=== PATIENT | male | born 1930 | race Caucasian/White ===

== ENCOUNTER 2018-05-24 12:32 | Emergency (ER) | payer BC, MEDICARE, OTHER ==
[~2018-05-24] VITALS: Ht 172.7 cm; Wt 83.0 kg
[2018-05-24] MEDS ORDERED: CITA40TA5 PO (13:48)
[2018-05-24] MEDS ORDERED: LEVE500T53 PO (13:48)
[2018-05-24] MEDS ORDERED: SIMV20TA3 PO (13:48)
[2018-05-24] MEDS ORDERED: MULT-257 PO (13:48)
[2018-05-24] MEDS ORDERED: OMEG-14 PO (13:48)
[2018-05-24] MEDS ORDERED: CALC-534 PO (13:48)
[2018-05-24] MEDS ORDERED: LISI-167 PO (13:48)
[2018-05-24 14:07] LABS: BASOPHILS # (AUTO) 0.05 x10^3/uL (0-0.1); BASOPHILS % (AUTO) 1 % (0-1); EOSINOPHILS # (AUTO) 0.07 x10^3/uL (0-0.4); EOSINOPHILS % (AUTO) 1 % (1-7); LYMPHOCYTES # (AUTO) 1.78 x10^3/uL (1-3.4); LYMPHOCYTES % (AUTO) 23 % (22-44); MD NO; MEAN CORPUSCULAR HEMOGLOBIN 31.3 pg (27.5-34.5); MEAN CORPUSCULAR HGB CONC 33.2 g/dL (33.2-36.2); MEAN CORPUSCULAR VOLUME 94.3 fL (81-97); MEAN PLATELET VOLUME 9.1 fL (7.4-10.4); MONOCYTES # (AUTO) 0.57 x10^3/uL (0.2-0.8); MONOCYTES % (AUTO) 7 % (2-9); NEUTROPHILS # (AUTO) 5.41 x10^3/uL (1.8-6.8); NEUTROPHILS % (AUTO) 69 % (42-75); PLATELET COUNT 239 x10^3/uL (130-400); RED BLOOD COUNT 5.07 x10^6/uL (4.38-5.82); RED CELL DISTRIBUTION WIDTH 13.5 % (9.4-14.8)
[2018-05-24 14:13] LABS: INTERNATIONAL NORMALIZED RATIO 1.08 (0.93-1.1); PROTHROMBIN TIME 11.2 Seconds (9.6-11.5)
[2018-05-24 14:16] LABS: ALANINE AMINOTRANSFERASE 21 U/L (12-78); ALBUMIN 3.5 g/dL (3.4-5.0); ANION GAP 13 mmol/L (5-15); CALCIUM 8.4 mg/dL (8.5-10.1); CHLORIDE 103 mmol/L (98-107); CREATININE 0.89 mg/dL (0.7-1.3)
[2018-05-24 14:20] LABS: ALKALINE PHOSPHATASE 72 U/L (45-117); BILIRUBIN,TOTAL 1.3 mg/dL (0.2-1.0); TOTAL PROTEIN 7.4 g/dL (6.4-8.2); TROPONIN I < 0.015 ng/mL (0.000-0.045)
[2018-05-24 15:43] LABS: MICROSCOPIC INDICATED
[2018-05-24 15:54] VITALS: BP 139/90
[2018-05-24 15:54] LABS: CULTURE INDICATED? YES
== END 2018-05-24 17:12 | disposition home or self-care (01) ==
LOC: ED 17:06
DX: R41.0 Disorientation, unspecified (principal); R11.0 Nausea; E78.5 Hyperlipidemia, unspecified; I10 Essential (primary) hypertension; R51 Headache
CPT/HCPCS: 36415; 70450; 71045; 80053; 80177; 81001; 84484; 85025; 85610; 85730; 87086; 93005; 99285

== ENCOUNTER 2019-04-11 17:27 | Emergency (ER) | payer MEDICARE, OTHER ==
[~2019-04-11] VITALS: Ht 172.7 cm; Wt 86.1 kg
[2019-04-11 19:29] VITALS: BP 142/71
== END 2019-04-11 19:31 | disposition home or self-care (01) ==
LOC: ED 19:25
DX: M54.5 Low back pain (principal); I10 Essential (primary) hypertension; E78.5 Hyperlipidemia, unspecified
CPT/HCPCS: 36415; 74176; 80053; 81001; 85025; 87086; 93005; 99284

== ENCOUNTER 2019-09-04 14:45 | Inpatient (IN) | payer MEDICARE, OTHER ==
[~2019-09-04] VITALS: Ht 172.7 cm; Wt 85.2 kg
[~2019-09-04 14:45] MED LIST: CALC-534 PO; CITA40TA5 PO; LEVE500T53 PO; LISI-167 PO; MULT-257 PO; OMEG-14 PO; SIMV20TA3 PO
--- NOTE | 2019-09-04 14:59 | NUR ---
Pt ambulatory to room. Pt reports pain to RLL and decreased senastion to right foot x2 days. RLL is red, swollen and dry with two abrasion-like spots underneath the kneecap. Pt in gown. Call light within reach.
[2019-09-04] MEDS ORDERED: SODIUM CHLORIDE FLUSH 10ML SYR IVF ONE (15:30)
[2019-09-04] MEDS ORDERED: VANCOMYCIN PER PHARMACY MC ONE (15:30)
[2019-09-04] MEDS ORDERED: VANCOMYCIN 1,500 MG in SODIUM CHLORIDE 0.9% 250 ML IV ONE (15:30)
--- NOTE | 2019-09-04 15:31 | NUR ---
Blood and cultures drawn. US at bedside.
--- NOTE | 2019-09-04 15:37 | NUR ---
PIV PLACED IN PT. PT TOLERATED WELL.
[2019-09-04 15:46] LABS: MEAN CORPUSCULAR HEMOGLOBIN 31.9 pg (27.5-34.5); MEAN CORPUSCULAR HGB CONC 33.3 g/dL (33.2-36.2); MEAN CORPUSCULAR VOLUME 95.9 fL (81-97); MEAN PLATELET VOLUME 8.6 fL (7.4-10.4); PLATELET COUNT 220 x10^3/uL (130-400); RED BLOOD COUNT 4.46 x10^6/uL (4.38-5.82); RED CELL DISTRIBUTION WIDTH 13.3 % (9.4-14.8)
[2019-09-04 15:52] LABS: ALBUMIN 2.8 g/dL (3.4-5.0); ANION GAP 6 mmol/L (5-15); CALCIUM 8.8 mg/dL (8.5-10.1); CHLORIDE 100 mmol/L (98-107); CREATININE 0.88 mg/dL (0.7-1.3)
[2019-09-04 16:18] LABS: BASOPHILS # (AUTO) 0.02 x10^3/uL (0-0.1); BASOPHILS % (AUTO) 0 % (0-1); EOSINOPHILS % (AUTO) 0 % (1-7); LYMPHOCYTES # (AUTO) 1.39 x10^3/uL (1-3.4); LYMPHOCYTES % (AUTO) 8 % (22-44); MD SCAN; MONOCYTES # (AUTO) 1.11 x10^3/uL (0.2-0.8); MONOCYTES % (AUTO) 6 % (2-9); NEUTROPHILS # (AUTO) 16.02 x10^3/uL (1.8-6.8); NEUTROPHILS % (AUTO) 86 % (42-75)
--- NOTE | 2019-09-04 16:21 | NUR ---
HOSPITALIST TO BEDSIDE.
[2019-09-04] MEDS ORDERED: VANCOMYCIN PER PHARMACY MC PRN (16:30)
[2019-09-04] MEDS ORDERED: ONDANSETRON ODT 4 MG PO PRN (16:30)
[2019-09-04] MEDS: AMPICILLIN/SULBACTAM 3 GM in SODIUM CHLORIDE 0.9% 100 ML IV SCH (16:30)
[2019-09-04] MEDS ORDERED: ONDANSETRON 2MG/ML, 2ML IVPush PRN (16:30)
[2019-09-04] MEDS ORDERED: ACETAMINOPHEN 325 MG TABLET PO PRN (16:30)
[2019-09-04] MEDS ORDERED: CEFTRIAXONE PMX 1GM/50ML 50 ML IVPB ONE (16:30)
[2019-09-04] MEDS ORDERED: DIPHENHYDRAMINE/ZINC CRM 2%, 30GM TP PRN (16:30)
[2019-09-04] MEDS ORDERED: SODIUM CHLORIDE 0.9% 1,000ML IVBOLUS ONE (16:30)
[2019-09-04] MEDS ORDERED: ENOXAPARIN 40 MG/0.4 ML ONE (16:56)
[2019-09-04] MEDS ORDERED: CEFTRIAXONE PMX 1GM/50ML 50 ML ONE (16:56)
[2019-09-04] MEDS: ENOXAPARIN 40 MG/0.4 ML SQ SCH (17:04)
--- NOTE | 2019-09-04 17:05 | NUR ---
Spoke with Jakob pharmacist and per him to wait to give abx and retime them. Pt is not critical and does not require immediate abx.
[2019-09-04] MEDS: SODIUM CHLORIDE 0.9% 1,000 ML IV SCH (18:00)
--- NOTE | 2019-09-04 18:03 | NUR ---
Pt medicated per emar.
--- NOTE | 2019-09-04 19:54 | NUR ---
Pt ambulated to restroom with just use of cane. Tolerated well.
--- NOTE | 2019-09-04 20:17 | NUR ---
Report called to [facility] to room [id number]
[2019-09-04 20:40] VITALS: BP 135/85
[2019-09-04] MEDS ORDERED: PHARMACOKINETIC MONITORING MC PRN (21:30)
[2019-09-04] MEDS: OMEGA-3/FISH OIL CAPSULE PO SCH (22:20)
[2019-09-04] MEDS: LISINOPRIL 10 MG TABLET PO SCH (22:20)
[2019-09-04] MEDS: SIMVASTATIN 20 MG TABLET PO SCH (22:20)
[2019-09-04] MEDS: LEVETIRACETAM 500 MG TABLET PO SCH (22:20)
[2019-09-05] MEDS: AMPICILLIN/SULBACTAM 3 GM in SODIUM CHLORIDE 0.9% 100 ML IV SCH ×3 (00:34→17:14)
[2019-09-05 01:30] VITALS: BP 135/81
[2019-09-05 05:53] LABS: ANION GAP 6 mmol/L (5-15); CALCIUM 7.7 mg/dL (8.5-10.1); CHLORIDE 106 mmol/L (98-107); CREATININE 0.73 mg/dL (0.7-1.3)
[2019-09-05 06:00] LABS: BASOPHILS # (AUTO) 0.05 x10^3/uL (0-0.1); BASOPHILS % (AUTO) 0 % (0-1); EOSINOPHILS # (AUTO) 0.04 x10^3/uL (0-0.4); EOSINOPHILS % (AUTO) 0 % (1-7); LYMPHOCYTES # (AUTO) 2.14 x10^3/uL (1-3.4); LYMPHOCYTES % (AUTO) 20 % (22-44); MD NO; MEAN CORPUSCULAR HEMOGLOBIN 31.7 pg (27.5-34.5); MEAN CORPUSCULAR HGB CONC 33.3 g/dL (33.2-36.2); MEAN PLATELET VOLUME 9.4 fL (7.4-10.4); MONOCYTES # (AUTO) 1.05 x10^3/uL (0.2-0.8); MONOCYTES % (AUTO) 10 % (2-9); NEUTROPHILS # (AUTO) 7.41 x10^3/uL (1.8-6.8); NEUTROPHILS % (AUTO) 69 % (42-75); PLATELET COUNT 199 x10^3/uL (130-400); RED BLOOD COUNT 3.87 x10^6/uL (4.38-5.82); RED CELL DISTRIBUTION WIDTH 13.3 % (9.4-14.8)
[2019-09-05] MEDS: ASPIRIN 81 MG TABLET EC PO SCH (06:21)
[2019-09-05 07:32] VITALS: BP 118/61
[2019-09-05] MEDS: OMEGA-3/FISH OIL CAPSULE PO SCH ×2 (08:48→20:08)
[2019-09-05] MEDS: CALCIUM/VITAMIN D3 250-125 TABLET PO SCH (08:48)
[2019-09-05] MEDS: SODIUM CHLORIDE 0.9% 1,000 ML IV SCH (08:48)
[2019-09-05] MEDS: LEVETIRACETAM 500 MG TABLET PO SCH ×2 (08:48→20:08)
[2019-09-05] MEDS: CITALOPRAM 20 MG TABLET PO SCH (08:49)
[2019-09-05] MEDS: MULTIVITAMIN 1 TABLET PO SCH (08:49)
[2019-09-05 12:57] VITALS: BP 106/68
[2019-09-05] MEDS ORDERED: VANCOMYCIN 1,500 MG in SODIUM CHLORIDE 0.9% 250 ML IV ONE (16:00)
[2019-09-05] MEDS: ENOXAPARIN 40 MG/0.4 ML SQ SCH (17:14)
[2019-09-05 19:11] VITALS: BP 129/87
[2019-09-05] MEDS: SIMVASTATIN 20 MG TABLET PO SCH (20:08)
[2019-09-05] MEDS: LISINOPRIL 10 MG TABLET PO SCH (20:08)
[2019-09-06 01:04] VITALS: BP 130/76
[2019-09-06] MEDS: AMPICILLIN/SULBACTAM 3 GM in SODIUM CHLORIDE 0.9% 100 ML IV SCH ×3 (01:04→18:16)
[2019-09-06] MEDS: SODIUM CHLORIDE 0.9% 1,000 ML IV SCH ×2 (03:14→20:06)
[2019-09-06 05:25] LABS: BASOPHILS # (AUTO) 0.08 x10^3/uL (0-0.1); BASOPHILS % (AUTO) 1 % (0-1); EOSINOPHILS # (AUTO) 0.14 x10^3/uL (0-0.4); EOSINOPHILS % (AUTO) 1 % (1-7); LYMPHOCYTES # (AUTO) 1.65 x10^3/uL (1-3.4); LYMPHOCYTES % (AUTO) 16 % (22-44); MD NO; MEAN CORPUSCULAR HEMOGLOBIN 31.5 pg (27.5-34.5); MEAN CORPUSCULAR VOLUME 95.6 fL (81-97); MEAN PLATELET VOLUME 9.2 fL (7.4-10.4); MONOCYTES # (AUTO) 0.73 x10^3/uL (0.2-0.8); MONOCYTES % (AUTO) 7 % (2-9); NEUTROPHILS # (AUTO) 7.59 x10^3/uL (1.8-6.8); NEUTROPHILS % (AUTO) 75 % (42-75); PLATELET COUNT 226 x10^3/uL (130-400); RED BLOOD COUNT 4.05 x10^6/uL (4.38-5.82); RED CELL DISTRIBUTION WIDTH 13.2 % (9.4-14.8)
[2019-09-06] MEDS: ASPIRIN 81 MG TABLET EC PO SCH (06:16)
[2019-09-06 07:55] VITALS: BP 120/72
[2019-09-06] MEDS: LEVETIRACETAM 500 MG TABLET PO SCH ×2 (09:09→20:06)
[2019-09-06] MEDS: CITALOPRAM 20 MG TABLET PO SCH (09:09)
[2019-09-06] MEDS: OMEGA-3/FISH OIL CAPSULE PO SCH ×2 (09:09→20:06)
[2019-09-06] MEDS: CALCIUM/VITAMIN D3 250-125 TABLET PO SCH (09:09)
[2019-09-06] MEDS: MULTIVITAMIN 1 TABLET PO SCH (09:09)
[2019-09-06 12:40] VITALS: BP 117/73
[2019-09-06] MEDS ORDERED: morphine SULFATE 10 MG/ML, 1ML IVPush PRN (15:00)
[2019-09-06] MEDS ORDERED: VANCOMYCIN 1,500 MG in SODIUM CHLORIDE 0.9% 250 ML IV SCH (15:00)
[2019-09-06] MEDS: ENOXAPARIN 40 MG/0.4 ML SQ SCH (18:17)
[2019-09-06 19:10] VITALS: BP 129/74
[2019-09-06] MEDS: SIMVASTATIN 20 MG TABLET PO SCH (20:06)
[2019-09-06] MEDS: LISINOPRIL 10 MG TABLET PO SCH (20:06)
[2019-09-07] MEDS: AMPICILLIN/SULBACTAM 3 GM in SODIUM CHLORIDE 0.9% 100 ML IV SCH ×2 (00:41→09:39)
[2019-09-07 01:08] VITALS: BP 127/75
[2019-09-07] MEDS: ASPIRIN 81 MG TABLET EC PO SCH (05:41)
[2019-09-07 07:19] VITALS: BP 145/77
[2019-09-07] MEDS: CITALOPRAM 20 MG TABLET PO SCH (09:39)
[2019-09-07] MEDS: MULTIVITAMIN 1 TABLET PO SCH (09:40)
[2019-09-07] MEDS: CALCIUM/VITAMIN D3 250-125 TABLET PO SCH (09:40)
[2019-09-07] MEDS: LEVETIRACETAM 500 MG TABLET PO SCH (09:40)
[2019-09-07] MEDS: OMEGA-3/FISH OIL CAPSULE PO SCH (09:40)
[2019-09-07] MEDS ORDERED: ASPI81TA45 PO (12:46)
[2019-09-07] MEDS ORDERED: LINE600T15 PO (12:46)
== END 2019-09-07 17:32 | disposition home or self-care (01) | DRG 603 ==
LOC: ED 15:52 → EDIP 16:14 → 3N 20:28
PROVIDERS: ADMIT Internal Medicine; ATTEND Internal Medicine
DX: L03.115 Cellulitis of right lower limb (principal); E87.1 Hypo-osmolality and hyponatremia; R65.10 Systemic inflammatory response syndrome (SIRS) of non-infectious origin without acute organ dysfunction; E78.5 Hyperlipidemia, unspecified; G40.909 Epilepsy, unspecified, not intractable, without status epilepticus; H35.30 Unspecified macular degeneration; I10 Essential (primary) hypertension; I25.10 Atherosclerotic heart disease of native coronary artery without angina pectoris; Z95.5 Presence of coronary angioplasty implant and graft
CPT/HCPCS: 36415; 80048; 82040; 83605; 84145; 85025; 87040; 99285; G0378; J0295; J0696; J1650; J3370; J7030; J7050